=== PATIENT | male | born 1940 | race Caucasian/White ===

== ENCOUNTER 2024-12-24 11:06 | Day surgery (SDC) | payer MEDICARE, SELFPAY ==
--- OUTSIDE RECORDS SUMMARY | 2024-12-05 14:48 | XMS_ITS ---
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
--- OUTSIDE RECORDS SUMMARY | 2024-12-05 14:48 | XMS_ITS | Clinical Summary ---
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 03/16/2023 Social History Tobacco Use Types Packs/Day Years Used Date Smoking Tobacco: Never Assessed Sex and Gender Information Value Date Recorded Sex Assigned at Male 03/15/2023 3:05 PM EDT Legal Sex Male 9:58 AM EDT Gender Identity Male 03/15/2023 3:05 PM EDT Sexual Orientation Heterosexual (straight) 03/15 3:05 PM EDT Plan of Treatment Health Maintenance Due Date Last Done Comments DTaP/Tdap/Td Vaccines (1 - Tdap) 1958 Pneumococcal Vaccines 50+ (1 of 1 - PCV) 1989 Zoster (Shingles) Vaccine (1 of 2) 1989 RSV Vaccine 60 years and older and Patients (1 - 1-dose 75+ series) 2014 COVID-19 Vaccine ( season) 2024 02/23/2023, 08/29/2021, 02/28/2021, Additional history exists Influenza Vaccine 12/26/2024 02/23/2023, , 02/28/2021, Additional history exists Hepatitis B Vaccines Aged Out No long er eligible based on patient's age to complete this topic Insurance MEDICARE PART A & B [facility] Care Teams Care Transitions Nurse Relationship Specialty Start Date End Date Cl Boateng MD [address] [place] [id number] PCP - General 02/06/23
[2024-12-19 14:54] VITALS: BMI 23.8
--- NOTE | 2024-12-23 12:38 | HO.ANESPROP2 ---
Documented by User: Anni Flood NP 12/23/24 12:44 HPI - Anesthesia Eval Consult details Narrative: 84yo M for Right Medial Rectus Eye Muscle Recession,Right Superior Rectus Recession Medically optimized per [facility] clinic Follows [facility] cardiology for: CAD/ STEMI 2013 - asa Afib s/p ablation - eliquis LBBB NIDIA on CPAP htn/hld Last cardiac office visit 01/2024 with routine 1 year f/u REPLACED BY [facility] Past Medical History Medical History LBBB (left bundle branch block) Schatzki's ring NIDIA on CPAP Nephrolithiasis Pulmonary nodule Hyperlipidemia Hearing loss Vertigo GERD (gastroesophageal reflux disease) BPH (benign prostatic hyperplasia) Anemia Asthma TIA (transient ischemic attack) HTN (hypertension) Atrial fibrillation Myocardial infarction Surgical History Surgical History Hx of hand surgery Hx of external ear surgery Hx of knee surgery Hx of appendectomy Hx of repair of rotator cuff History of cardiac ablation for atrial fibrillation Social History Social History Patient Tobacco Use Status: Former Tobacco user Tobacco use type: Cigarette Use of substances other than those prescribed or required for medical reasons: No Advance Directives: No Advance Directives Information Provided: Yes Meds Allergies Allergy/AdvReac Type Severity Reaction Status Date / Time No Known Allergies Allergy Verified 12/19/24 15:02 Home Medications ?Medication ?Instructions ?Recorded ?Confirmed ?Last Taken ?Type apixaban 5 mg tablet (Eliquis) 5 mg PO BID 12/19/24 12/19/24 Unknown History aspirin 81 mg tablet,delayed 81 mg PO DAILY 12/19/24 12/19/24 Unknown History release atorvastatin 40 mg tablet 40 mg PO DAILY 12/19/24 12/19/24 Unknown History azelastine 137 mcg (0.1 %) nasal 2 spray intranasal DAILY PRN 12/19/24 12/19/24 Unknown History spray allergies finasteride 5 mg tablet 5 mg PO DAILY 12/19/24 12/19/24 Unknown History hydrochlorothiazide 25 mg tablet 25 mg PO DAILY 12/19/24 12/19/24 Unknown History ipratropium bromide 21 mcg (0.03 1 - 2 spray intranasal BID PRN 12/19/24 12/19/24 Unknown History %) nasal spray Nasal Congestion pantoprazole 40 mg tablet,delayed 40 mg PO DAILY 12/19/24 12/19/24 Unknown History release ramipril 10 mg capsule 10 mg PO DAILY 12/19/24 12/19/24 Unknown History tamsulosin 0.4 mg capsule 0.4 mg PO DAILY 12/19/24 12/19/24 Unknown History Exam Height,Weight and Vital Signs: Height 5 ft 9.25 in Weight 73.7 kg Pertinent Lab Results Pertinent Lab Results: CBC and BMP 10/2024 from [facility] Narrative Narrative: ECGECG 12-Lead * Preliminary * ? 09:26:55 Please click on pdf link to open report ? ECG 12-Lead * Preliminary * ? 09:26:55 Ventricular Rate: 63 BPM Atrial Rate: 63 BPM P-R Interval: 184 ms QRS Duration: 150 ms Q-T Interval: 480 ms QTC Calculation(Bazett): 491 ms P [place]: 80 degrees R [place]: 17 degrees T [place]: -16 degrees Normal sinus rhythm Left bundle branch block Abnormal ECG When compared with ECG of 04-AUG-2022 10:12, No significant change was found Dingess: , EchoEchocardiogram - Complete ? 10:42:38 Summary The left ventricular size is normal. Left ventricular wall thickness is normal. The LV systolic function is normal . The left ventricular ejection fraction is 55-60 %. The mid inferolateral wall is akinetic . Grade I, mild diastolic dysfunction with impaired LV relaxation. The right ventricle is normal in size and function. Comparison Comparison is made to the study of March 06, 2017. There is no definite interval change. Assessment and Plan Assessment Anesthesia Assessment: Chart Reviewed Documented by User: Jacey Lieberman MD 12/24/24 14:00 REPLACED BY [facility] Past Medical History Medical History LBBB (left bundle branch block) Schatzki's ring NIDIA on CPAP Nephrolithiasis Pulmonary nodule Hyperlipidemia Hearing loss Vertigo GERD (gastroesophageal reflux disease) BPH (benign prostatic hyperplasia) Anemia Asthma TIA (transient ischemic attack) HTN (hypertension) Atrial fibrillation Myocardial infarction Functional capacity: wheelchair bound Surgical History Surgical History Hx of hand surgery Hx of external ear surgery Hx of knee surgery Hx of appendectomy Hx of repair of rotator cuff History of cardiac ablation for atrial fibrillation History of Problems with Anesthesia: No Social History Social History Patient Tobacco Use Status: Former Tobacco user Tobacco use type: Cigarette Use of substances other than those prescribed or required for medical reasons: No Advance Directives: No Advance Directives Information Provided: Yes Meds Allergies Allergy/AdvReac Type Severity Reaction Status Date / Time No Known Allergies Allergy Verified 12/19/24 15:02 Home Medications ?Medication ?Instructions ?Recorded ?Confirmed ?Last Taken ?Type apixaban 5 mg tablet (Eliquis) 5 mg PO BID 12/19/24 12/19/24 Unknown History aspirin 81 mg tablet,delayed 81 mg PO DAILY 12/19/24 12/19/24 Unknown History release atorvastatin 40 mg tablet 40 mg PO DAILY 12/19/24 12/19/24 Unknown History azelastine 137 mcg (0.1 %) nasal 2 spray intranasal DAILY PRN 12/19/24 12/19/24 Unknown History spray allergies finasteride 5 mg tablet 5 mg PO DAILY 12/19/24 12/19/24 Unknown History hydrochlorothiazide 25 mg tablet 25 mg PO DAILY 12/19/24 12/19/24 Unknown History ipratropium bromide 21 mcg (0.03 1 - 2 spray intranasal BID PRN 12/19/24 12/19/24 Unknown History %) nasal spray Nasal Congestion pantoprazole 40 mg tablet,delayed 40 mg PO DAILY 12/19/24 12/19/24 Unknown History release ramipril 10 mg capsule 10 mg PO DAILY 12/19/24 12/19/24 Unknown History tamsulosin 0.4 mg capsule 0.4 mg PO DAILY 12/19/24 12/19/24 Unknown History Exam Airway Mallampati Class: II (edentuous) TM Dist: >3cm Neck ROM: Limited Denture: Upper and Lower Loose/Missing/Broken Teeth: Yes, Upper and Lower Heart: RRR Lungs: CTA Assessment and Plan Assessment Anesthesia Assessment: Anesthesia Plan Discussed Final Anesthetic Review History of Problems with Anesthesia: No NPO: Yes ASA Class: III Final Preanesthetic Review: Meds/Allgs Chart Reviewed, Consent Obtained/Reviewed and Anes Risks/Benef Reviewed Patient Risk: Intermediate Procedure Risk: Low Anesthetic Plan Anesthetic Plan: GA Disposition: Standard PACU
[2024-12-24 11:36] VITALS: BP 137/62; PULSE 53; RESP 16; TEMP 36.6; O2SAT 98
[2024-12-24] MEDS: Lactated Ringers 1,000 ML 100 ML IVCONT (11:41)
--- NOTE | 2024-12-24 14:29 | HO.OPHTHAL ---
Ophthalmology Operative Note Date of Service: 12/24/24 Narrative: Preoperative diagnoses 1 esotropia 2. Right hypertropia. Postoperative diagnoses same. Procedures 1. Bilateral medial rectus recessions of 3 mm 2. 1/3 temporal tenotomy of the right superior rectus muscle. Surgeon Dr. Mata. Anesthesia general. Complications none. The patient was brought to the operative room placed under general anesthesia. The eyes were prepped and draped in the usual sterile ophthalmic fashion. A lid speculum was placed in the right eye and a peritomy was created around the superior and medial rectus muscles. The medial rectus was hooked and secured with a double-armed Vicryl suture. The muscle was disinserted from the globe and reattached to a position just under 3 mm behind the original insertion. The superior rectus was then hooked and the temporal 3rd of the insertion cauterized. Temporal 3rd was then cut with Aletha scissors. Conjunctiva was closed with interrupted Vicryl sutures. An identical procedure was then performed on the left medial rectus muscle only. The patient was then awoken from general anesthesia and discharged to postoperative recovery in good condition.
[2024-12-24 14:30] VITALS: BP 142/69; PULSE 67; RESP 18; TEMP 36.7; O2SAT 100
[2024-12-24 14:35] VITALS: BP 141/69; PULSE 65; RESP 12; O2SAT 100
[2024-12-24 14:40] VITALS: BP 141/70; PULSE 62; RESP 12; O2SAT 100
[2024-12-24 14:45] VITALS: BP 141/70; PULSE 62; RESP 12; O2SAT 97
[2024-12-24 15:00] VITALS: BP 141/61; PULSE 63; RESP 14; TEMP 36.3; O2SAT 97
== END 2024-12-24 15:41 | disposition home or self-care (01) ==
PROVIDERS: PCP Internal Medicine; Visit Provider Ophthalmology
PROC: (CPT 67311; principal; 2024-12-24 13:10)
DX: H53.2 Diplopia (principal); H50.21 Vertical strabismus, right eye; H50.00 Unspecified esotropia; I48.91 Unspecified atrial fibrillation; I25.2 Old myocardial infarction; D64.9 Anemia, unspecified; I10 Essential (primary) hypertension; E78.5 Hyperlipidemia, unspecified; G47.33 Obstructive sleep apnea (adult) (pediatric); Z79.01 Long term (current) use of anticoagulants; Z79.82 Long term (current) use of aspirin; Z79.899 Other long term (current) drug therapy; Z99.89 Dependence on other enabling machines and devices
CPT/HCPCS: 67311; 67314; J0131; J2003; J2704; J3010